=== PATIENT | female | born 1980 | race Caucasian/White ===

== ENCOUNTER 2017-11-30 05:10 | Emergency (ER) | payer OTHER ==
[~2017-11-30] VITALS: Ht 162.6 cm; Wt 81.2 kg
[~2017-11-30 05:10] MED LIST: NOHOMEMEDICATIONS
[2017-11-30] MEDS ORDERED: ANTIHYPERTENSIVE (05:18)
[2017-11-30] MEDS ORDERED: CLONIDINE0.1 PO (05:32)
[2017-11-30] MEDS ORDERED: ZOFRAN ODT8 MG PO (05:32)
[2017-11-30] MEDS ORDERED: NAPROSYN500 MG PO (05:32)
[2017-11-30 06:30] VITALS: BP 155/92
== END 2017-11-30 06:37 ==
LOC: ER 05:10
DX: I10 Essential (primary) hypertension (principal); F41.8 Other specified anxiety disorders; F43.0 Acute stress reaction; R11.0 Nausea